=== PATIENT | female | born 1990 | race African-American/Black ===

== ENCOUNTER 2017-12-25 12:24 | Emergency (ER) | payer MEDICAID ==
[2017-12-25] MEDS: DIPHTH,PERTUSS(ACELL),TET TOX 0.5 ML DISP.SYRIN. VAX IM (13:14)
== END 2017-12-25 13:23 | disposition home or self-care (01) ==
LOC: ER 13:23
DX: S60.222A Contusion of left hand, initial encounter (principal); J45.909 Unspecified asthma, uncomplicated; W22.8XXA Striking against or struck by other objects, initial encounter; Y93.89 Activity, other specified; Y99.8 Other external cause status; Y92.89 Other specified places as the place of occurrence of the external cause
CPT/HCPCS: 73130; 99284

== ENCOUNTER 2018-01-07 10:58 | Emergency (ER) | payer MEDICAID | END 2018-01-07 12:15 | disposition home or self-care (01) | LOC: ER 10:58 | DX: S60.222A Contusion of left hand, initial encounter (principal); J45.909 Unspecified asthma, uncomplicated; W22.01XA Walked into wall, initial encounter; Y93.89 Activity, other specified; Y99.8 Other external cause status; Y92.89 Other specified places as the place of occurrence of the external cause | CPT/HCPCS: 73130; 99284 ==